=== PATIENT | female | born 1980 | race Caucasian/White ===

== ENCOUNTER 2016-10-19 07:26 | Day surgery (SDC) | payer BC ==
[2016-10-14 11:17] VITALS: BMI 30.2
[2016-10-19] MEDS ORDERED: PROPOFOL 20 ML ONE (08:46)
[2016-10-19] MEDS ORDERED: MIDAZOLAM HCL 2 MG/2 ML SINGLE DOSE VIAL ONE (08:46)
[2016-10-19] MEDS ORDERED: LIDOCAINE HCL/PF 2% SDV 5ML VIAL ONE (08:48)
[2016-10-19 10:10] VITALS: TEMP 98.3
[2016-10-19] MEDS ORDERED: OXYCODONE/APAP 5/325MG COMBO TABLET ONE (10:11)
[2016-10-19 10:49] VITALS: BP 112/80; PULSE 72
--- NOTE | 2016-10-20 18:00 | OP ---
DATE OF OPERATION: 10/19/2016 PREOPERATIVE DIAGNOSIS: Left long finger mass, subungual. POSTOPERATIVE DIAGNOSIS: Left long finger mass, subungual. OPERATIVE PROCEDURE: 1. Excision of left long finger subungual mass. 2. Left long finger nail plate excision. SURGEON: Tyler Epps M.D. ANESTHESIA: Local with sedation. COMPLICATIONS: None. ESTIMATED BLOOD LOSS: Minimal. INDICATION FOR PROCEDURE: The patient is a 36-year-old female with the above findings indicated for operative treatment. Risks, benefits, and alternatives were discussed with patient at length, informed consent was obtained. PROCEDURE: After proper identification of the patient and correct operative site, patient was brought to the operating room and placed supine on the operating room table, all bony prominences well padded. Regional anesthesia was given by the anesthesiologist, local anesthesia was given 2% lidocaine. Left upper extremity was prepped and draped in the usual sterile fashion. Well padded tourniquet was placed with a sterile prep. Esmarch bandage to exsanguinate the left upper extremity. Tourniquet inflated to 250 mmHg. The nail plate was elevated and excised, allowing direct visualization of the nail bed. The mass was found to have displaced the radial 1/4 of the nail bed sterile matrix. Germinal matrix appeared to be intact in this area. An incision was made in the radial border of the eponychial fold, and this did confirm that the germinal matrix was intact in this area. The mass was shelled out from beneath the remaining sterile matrix all the way down to the level of the distal phalanx, of which the mass had been impinging on. The mass was able to be excised in whole, and sent for pathological evaluation. At this point, the concern was reconstructing the finger in order to allow nail growth without impinging on the eponychium or perionychium. The radial 1/4 of the nail bed was missing. Therefore a small flap was developed of the skin and it was gently repaired to the radial border of the nail bed. This was secured for the most part in the eponychium and perionychial areas. This was done with 5-0 and plain gut. This did lead to a cosmetically acceptable result, but we will have to see how the nail grows in later to see if further procedures will be necessary. The area was irrigated with saline. The area was sterilely dressed. The patient was reversed from sedation and brought to the recovery room in stable condition. She tolerated the procedure well. TYLER EPPS M.D. YANET/[id number]
--- NOTE | 2016-10-21 11:06 | PATH ---
Surgical Pathology Report Patient Name: KASI VILLALBA [facility]. Rec. #: [id number] /Age/Gender: 1980 (Age: 36) / F Account: [id number] Location: [facility] AMBULATORY Taken: 10/19/2016 Received: 10/19/2016 Reported: 10/21/2016 Physicians: Tyler Sorto M.D. Specimen(s) Received SUBUNGUAL MASS LEFT LONG FINGER Clinical History Left long finger mass Final Diagnosis LEFT LONG FINGER, SUBUNGUAL MASS, EXCISION: FIBROMA. Electronically Signed Marily Marrufo M.D. Gross Description Received in formalin, labeled "subungual mass left long finger," is a 0.9 x 0.6 x 0.5 cm young, irregular portion of soft tissue. The specimen is bisected. The cut surface displays homogeneous young parenchyma. The specimen is entirely submitted in one cassette. /10/19/201610/19/2016
== END 2016-10-19 10:50 | disposition home or self-care (01) ==
LOC: FASU 07:26
PROVIDERS: ATTEND Orthopaedic Surgery Hand Surgery
PROC: 0HDQXZZ Extraction of Finger Nail, External Approach (ICD-10-PCS; 2016-10-19)
PROC: 0JBK0ZZ Excision of Left Hand Subcutaneous Tissue and Fascia, Open Approach (ICD-10-PCS; principal; 2016-10-19 09:12)
DX: D21.12 Benign neoplasm of connective and other soft tissue of left upper limb, including shoulder (principal)
CPT/HCPCS: 84703; 88305-TC

== ENCOUNTER 2017-01-27 07:25 | Day surgery (SDC) | payer BC ==
--- NOTE | 2017-01-11 10:47 | HP ---
PATIENT NAME: Sylvia Stone DATE OF ADMISSION: 01/27/2017 DATE OF DICTATION: 01/03/2017 Patient is to be admitted to the [facility] surgical [facility] in the near future, date to be determined. HISTORY: A 36-year-old woman who presents for open reduction, repair of chronically incarcerated ventral hernia involving the supraumbilical midline. Patient had delivered twins in 2015 and subsequent to that went on to notice the hernia, which waxes and wanes in terms of discomfort and size. No underlying GI, , or respiratory complaints to suggest predisposition to hernia formation. PAST MEDICAL HISTORY: Significant for hypertension, irritable bowel syndrome, underlying anxiety, depressive disorder, which surfaced after as well as an underlying thyroid issue. No known history of heart disease, diabetes, or respiratory, renal, or hepatic insufficiency. PAST SURGICAL HISTORY: Apart from her section in September of 2015. She has also had finger surgery in 2017. ALLERGIES: None known. REGULAR MEDICATION: Synthroid, Zoloft, Xanax p.r.n. SOCIAL HISTORY: Negative tobacco, positive alcohol only on occasion. FAMILY HISTORY: Father and a mother history of colon cancer (patient did have a colonoscopy 6 years ago and is apparently due to complete her repeat colonoscopy next month). Siblings, 1 with IBS and anxiety. REVIEW OF SYSTEMS: Otherwise none. PHYSICAL EXAMINATION: General: On inspection, there is an obvious hernia in the supraumbilical midline. On palpation it is incarcerated and irreducible. It is mildly tender. There are no other significant findings. Abdomen: Soft, nontender. IMPRESSION: Chronically incarcerated ventral hernia. PLAN: Reduction and repair of chronically incarcerated ventral hernia with mesh. Indications, alternatives, possible complications reviewed. Consent obtained. Patient will be seen preoperatively by her physician, Dr. Cheyenne Romano. JEFFERY FUENTES M.D. [place]AVELLE/[id number]
[2017-01-23 13:27] VITALS: BMI 30.4
[2017-01-27] MEDS ORDERED: ROCURONIUM BROMIDE 50 MG/5 ML VIAL ONE (09:17)
[2017-01-27] MEDS ORDERED: MIDAZOLAM HCL 2 MG/2 ML SINGLE DOSE VIAL ONE (09:17)
[2017-01-27] MEDS ORDERED: oxyCODONE HCL 5 MG TABLET PO PRN (10:27)
[2017-01-27] MEDS ORDERED: ONDANSETRON 4 MG/2 ML VIAL IVPUSH PRN (10:27)
[2017-01-27] MEDS ORDERED: LACTATED RINGERS SOLUTION 1,000 ML IV SCH (10:30)
[2017-01-27] MEDS ORDERED: DEXAMETHASONE SOD PHOSPHATE 4 MG/1 ML VIAL ONE (10:31)
[2017-01-27] MEDS ORDERED: ceFAZolin SODIUM 1 GM VIAL ONE (10:31)
[2017-01-27] MEDS ORDERED: KETOROLAC TROMETHAMINE 30 MG/1 ML VIAL ONE (10:31)
[2017-01-27] MEDS ORDERED: NEOSTIGMINE METHYLSULFATE 0.5 MG/ML - 10 ML MDV ONE (11:31)
[2017-01-27] MEDS ORDERED: HYDROmorphone HCL CARPU-JECT 1 MG/1 ML DISP.SYRIN ONE (12:34)
[2017-01-27] MEDS: HYDROmorphone HCL CARPU-JECT 1 MG/1 ML DISP.SYRIN IVPUSH PRN ×3 (12:35→13:00)
[2017-01-27] MEDS: oxyCODONE HCL 5 MG TABLET PO PRN ×2 (14:55→16:25)
[2017-01-27] MEDS ORDERED: oxyCODONE HCL 5 MG TABLET ONE ×2 (14:56→16:24)
[2017-01-27 15:07] VITALS: TEMP 98
[2017-01-27 16:58] VITALS: BP 123/89; PULSE 87
--- NOTE | 2017-01-28 07:09 | OP ---
DATE OF OPERATION: 01/27/2017 PREOPERATIVE DIAGNOSIS: Chronically incarcerated ventral hernia. POSTOPERATIVE DIAGNOSIS: Multiple chronically incarcerated ventral hernias. PROCEDURE: Component separation and repair of complex incarcerated ventral hernia with mesh. OPERATING SURGEON: Catracho Hopkins MD CODING TECHNICIAN: Peter Diamond MD ANESTHESIA: Giovani Francois MD (general). HISTORY: This is a 36-year-old woman who last year delivered twins. After delivering twins, she had gone on to develop a supraumbilical midline hernia. It waxes and wanes in terms of symptoms and at this juncture had decided to move in the direction of definitive management. At the time of surgery, patient found to have a string of incarcerated defects up along the upper midline. The entire process was addressed. Indications, alternatives, possible complications reviewed. Consent obtained. PROCEDURE: With the patient in the supine position, after general anesthesia, the abdomen was prepped and draped in sterile fashion using chlorhexidine. Transverse incision was made directly over the obvious hernia in the supraumbilical midline, deepened into the subcutaneous space. The hernia sac was easily encountered and cleaned to the level of the fascial ring. Fascial ring was incised and the hernia sac initially reduced. Inspection, however, revealed that there were additional incarcerated defects extending superiorly along the midline. These were followed sequentially with reduction of each of the defects, most of which appeared to contain preperitoneal fat. Considering the chain of defects along the upper midline, a bilateral component separation was performed in order to lay a large piece of Composite mesh. First directing our attention to the right side, the posterior rectus sheath was from the right rectus musculature, mobilized laterally to the junction of the rectus and oblique musculature. This was performed sharply. Now directing our attention to the left side, again the left posterior sheath was from the left rectus muscle fibers, moving both laterally, superiorly , and inferiorly, and again approaching the junction of the rectus and the oblique musculature. After the large retrorectus space was created, a Composite mesh was made suturing a piece of ProGrip mesh measuring 15 x 15 cm in size to a piece of OviTex mesh measuring 10 x 20 cm in size. This was accomplished with circumferential interrupted 3-0 Vicryl sutures. The Composite mesh was then placed in the retrorectus space and fanned out in all directions. The OviTex mesh was placed against the posterior rectus sheath with the ProGrip positioned anteriorly. Using an AbsorbaTack, the mesh was fixed circumferentially both superiorly, inferiorly, as well as laterally in each direction. After the mesh was placed, the region was irrigated and adequate hemostasis ensured. The anterior rectus fascia was then closed using interrupted 0 Vicryl sutures, leaving the mesh entirely in the retrorectus space. Subcutaneous tissues were irrigated and adequate hemostasis ensured. The wound was subsequently closed in layers. Subcutaneous tissues were reapproximated with interrupted 3-0 Vicryl sutures. Subcuticular layer was reapproximated with interrupted 4-0 Biosyn sutures. Dermabond used at the skin level. At the completion of the procedure, instrument count was correct. Estimated blood loss: Minimal. Specimen: None. Implant: OviTek mesh (10 x 20 cm)/ProGrip mesh (15 x 15 cm). Drains: None. After completion of the procedure, the patient was transferred to the recovery room. Eunice [id number]
== END 2017-01-27 16:40 | disposition home or self-care (01) ==
LOC: FASU 07:25
PROVIDERS: ATTEND Surgery
PROC: 0JX80ZC Transfer Abdomen Subcutaneous Tissue and Fascia with Skin, Subcutaneous Tissue and Fascia, Open Approach (ICD-10-PCS; 2017-01-27)
PROC: 0WUF0JZ Supplement Abdominal Wall with Synthetic Substitute, Open Approach (ICD-10-PCS; principal; 2017-01-27 09:00)
DX: K43.6 Other and unspecified ventral hernia with obstruction, without gangrene (principal)
CPT/HCPCS: 84703; 94760